=== PATIENT | female | born 1965 | race American Indian/Alaskan Native ===

== ENCOUNTER 2016-08-22 12:04 | Outpatient (CLI) | payer MEDICAID ==
--- NOTE | 2016-08-23 09:37 | PET Report ---
PET/CT:08/22/16 12:04:00 CLINICAL: Right breast cancer staging. Status post ultrasound needle biopsy right breast mass at 8 o'clock 3 cm from the nipple on 06/22/16 with pathologic diagnosis of invasive ductal carcinoma. A second mass at 9 o'clock 4 cm from nipple with identical pathology. RADIOPHARMACEUTICAL: 15.42mCi F18-FDG. COMPARISON: MRI Breast 07/30/16 TECHNIQUE- Following intravenous injection of F-18 FDG and an approximately 60 minute uptake period, CT and PET images from the mid skull to the upper thighs were acquired with the patient in the fasted state. No contrast was administered. The CT protocol used for this PET CT study is designed for attenuation correction and anatomic localization of PET abnormalities. This skein drier CT is not desired to produce and cannot replace, [id number] diagnostic CT scans with specific imaging protocols for different body parts and indications. Plasma glucose at the time of this test: 111g/dl. The standardized uptake values (SUV) are normalized to patient body weight and indicate the highest activity concentration (SUV max) in a given disease site. FINDINGS: Brain--Physiologic FDG uptake in the visualized regions of the brain. Neck--Physiologic FDG uptake . Chest--Physiologic FDG uptake in mediastinal blood pool and myocardium. Two irregular masses in the right breast with biopsy clips and minimal FDG uptake. Lungs--No abnormal uptake. No pulmonary nodule or mass. Pleura/pericardium--No abnormal uptake. Thoracic nodes--No abnormal uptake. Hepatobiliary--No abnormal uptake. Liver background SUV mean, as a reference for comparing FDG studies, is 3.7 . No liver mass. Spleen--No abnormal uptake. Pancreas--No abnormal uptake. Adrenal Glands--No abnormal uptake. Kidneys/Ureters/Bladder--No abnormal uptake. Abdominopelvic Nodes--No abnormal uptake. Bowel/Peritoneum/Mesentery--No abnormal uptake. Pelvic organs--No abnormal uptake. Bones/Soft Tissues--No suspicious uptake. No bone lesions. IMPRESSION-1. Relatively non-FDG avid right breast cancer. 2. No metastasis.
== END 2016-08-22 12:05 | disposition home or self-care (01) ==
LOC: PET 12:04
PROVIDERS: ATTEND Internal Medicine Hematology & Oncology
DX: C50.511 Malignant neoplasm of lower-outer quadrant of right female breast (principal)
CPT/HCPCS: 78815; 82962; A9552

== ENCOUNTER 2016-11-19 10:05 | Outpatient (CLI) | payer MEDICAID ==
--- NOTE | 2016-11-19 10:40 | Mammography Report ---
RIGHT DIGITAL DIAGNOSTIC MAMMOGRAM with CAD: 11/19/16 10:05:00 CLINICAL: Right breast cancer status post neoadjuvant chemotherapy. COMPARISON:07/22/16 BILL mammogram. FINDINGS: The breast is heterogeneously dense, which may obscure small masses.A relatively central retroareolar biopsy clip correlates with the known cancer. There is a residual focal asymmetry but no distinct mass at the clip. Two additional clips in the outer breast with no mammographic findings at those clips. IMPRESSION: A partial mammographic response to chemotherapy. BI-RADS CATEGORY: 6--Known Cancer ACR BI-RADS MAMMOGRAPHIC CODES: 0 = Needs additional imaging evaluation; 1 = Negative; 2 = Benign; 3 = Probably benign; 4 = Suspicious; 5 = Malignant; 6 = Known biopsy-proven malignancy COMMENT: 1. Dense breast tissue, i.e., adenosis, fibrocystic changes, etc., may obscure an underlying neoplasm. 2. Approximately 10% of cancers are not detected with mammography. 3. A negative mammography report should not delay biopsy if a clinically suspicious mass is present. COMMENT: Patient follow-up letters are generated by our [employer] application.
== END 2016-11-19 10:06 | disposition home or self-care (01) ==
LOC: SPVWC 10:05
PROVIDERS: ATTEND Surgery
DX: C50.411 Malignant neoplasm of upper-outer quadrant of right female breast (principal)
CPT/HCPCS: G0206-RT

== ENCOUNTER 2017-12-03 10:43 | Outpatient (CLI) | payer MEDICAID ==
--- NOTE | 2017-12-03 12:00 | Mammography Report ---
BONE DENSITY STUDY: Osteoporosis screening. DEFINITIONS: BMD = Bone Mineral Density T-score = BMD related to mean peak bone mass of young adult (mean expressed in Standard Deviation) Z-score = Age matched BMD expressed in SD World Health Organization (WHO) Diagnostic Criteria Normal T-score > -1 SD Osteopenia T-score between -1 and -2.4 SD Osteoporosis T-score -2.5 SD or below FINDINGS: The weighted average BMD of lumbar spine L1-L4 is 0.875 with a T-score of -1.6. The weighted average BMD of the left hip is 0.914 with a T-score of -0.2. The femoral neck BMD is 0.725 with a T. value score of -1.1. IMPRESSION: The patient's average T-score is diagnostic for osteopenia and average relative risk for fracture. NOTE: BMD is not the only risk factor for fracture; also consider factors such as the patient's age, risk of falling, previous osteoporotic fracture, family history of osteoporotic fractures, current smoker, and low body weight. Mcdaniel's triangle is a region of interest in femur, predominantly of trabecular bone. It is not a true anatomic site, and ISCD does not recommend its use clinically.
== END 2017-12-03 10:44 | disposition home or self-care (01) ==
LOC: MAMMO 10:43
PROVIDERS: ATTEND Internal Medicine Hematology & Oncology
DX: Z23 Encounter for immunization (principal); M85.88 Other specified disorders of bone density and structure, other site; C50.511 Malignant neoplasm of lower-outer quadrant of right female breast; T82.598A Other mechanical complication of other cardiac and vascular devices and implants, initial encounter; F17.210 Nicotine dependence, cigarettes, uncomplicated
CPT/HCPCS: 77080

== ENCOUNTER 2018-07-07 11:37 | Outpatient (CLI) | payer MEDICAID ==
--- NOTE | 2018-07-07 11:59 | XRay Report ---
ROUTINE CHEST, TWO VIEWS: HISTORY: Acute bronchitis. The trachea, heart, mediastinal contour, lung valle and bony thorax are unremarkable. IMPRESSION: Unremarkable chest x-ray.
== END 2018-07-07 11:38 | disposition home or self-care (01) ==
LOC: XRAY 11:37
PROVIDERS: ATTEND Internal Medicine
DX: J20.9 Acute bronchitis, unspecified (principal); Z90.710 Acquired absence of both cervix and uterus
CPT/HCPCS: 71046

== ENCOUNTER 2019-12-02 10:40 | Outpatient (CLI) | payer MEDICAID ==
--- NOTE | 2019-12-02 15:17 | Mammography Report ---
DEXA BONE DENSITY SCAN INDICATION: OSTEOPOROSIS. COMPARISON: None available. LUMBAR SPINE (L1-L4): Bone mineral density (BMD) is 0.886 g/cm2. T-score is -1.5 (standard deviations of Young Adult mean). Z-score is -1.3% (standard deviations of Age Matched mean). There has been a 1% increase in bone density since 2018 in this region. LEFT FEMORAL NECK: Bone mineral density (BMD) is 0.774 g/cm2. T-score is -0.7 (standard deviations of Young Adult mean). Z-score is -0.5 (standard deviations of Age Matched mean). There has been a nearly 5% increase in bone density since 2018 in this region. IMPRESSION: 1. WHO Classification: Osteopenia. Fracture Risk: Increased. Signer Name: Mikhail Osborne MD Signed: 12/02/2019 3:12 PM Workstation Name: [id number]
== END 2019-12-02 10:41 | disposition home or self-care (01) ==
LOC: MAMMO 10:40
PROVIDERS: ATTEND Internal Medicine Hematology & Oncology
DX: M81.0 Age-related osteoporosis without current pathological fracture (principal); C50.511 Malignant neoplasm of lower-outer quadrant of right female breast; Z23 Encounter for immunization; T82.598A Other mechanical complication of other cardiac and vascular devices and implants, initial encounter
CPT/HCPCS: 77080

== ENCOUNTER 2020-05-27 19:28 | Emergency (ER) | payer MEDICAID ==
[2020-05-27] MEDS ORDERED: SODIUM CHLORIDE 0.9% 500 ML 500 ML IV ONE (20:05)
[2020-05-27 20:30] LABS: Basophils % (Auto) 0.8 % (0.0-1.8); Eosinophils % (Auto) 0.2 % (0.0-4.3); Hemoglobin 12.4 gm/dl (10.1-14.3); Lymphocytes # (Auto) 1.7 K/mm3 (1.2-5.4); Lymphocytes % (Auto) 31.9 % (13.4-35.0); Mean Corpuscular HGB Conc 33 % (30-34); Mean Corpuscular Volume 81 fl (79-97); Monocytes # (Auto) 0.3 K/mm3 (0.0-0.8); Monocytes % (Auto) 6.3 % (0.0-7.3); Platelet Count 163 K/mm3 (140-440); Red Blood Count 4.72 M/mm3 (3.65-5.03); Red Cell Distribution Width 14.4 % (13.2-15.2)
--- NOTE | 2020-05-27 20:31 | XRay Report ---
CHEST 1 VIEW INDICATION: possible Sepsis COMPARISON: 07/07/2018 FINDINGS: Support devices: None Heart: Normal and unchanged Lungs/Pleura: Parenchymal density in the lung bases, most suggestive of atelectasis. No convincing ev idence of acute disease. IMPRESSION: 1. No acute disease and no interval change. Signer Name: Skinny Nair MD Signed: 05/27/2020 8:27 PM Workstation Name: [id number]
[2020-05-27 20:38] LABS: INR 1.1 (0.87-1.13)
[2020-05-27 20:45] LABS: Alanine Aminotransferase 28 units/L (7-56); Albumin 4.2 g/dL (3.9-5); BUN/Creatinine Ratio 10; Blood Urea Nitrogen 8 mg/dL (7-17); Calcium 8.8 mg/dL (8.4-10.2); Hemolysis Index 1
--- NOTE | 2020-05-27 20:58 | Emergency Department Report ---
ED General Adult HPI - General Chief complaint: Chest Pain Stated complaint: CHEST PAIN, FEVER Time Seen by Provider: 05/27/20 20:50 Source: patient Mode of arrival: Ambulatory Limitations: No Limitations - History of Present Illness Initial comments: Patient is a 55-year-old F Ethiopian female whose only past medical history is being a breast cancer survivor who is presenting with cough and fatigue for the past 3 to 4 days. Patient has had exposure to someone with COVID-19 as her daughter is currently in the ICU. Daughter is diabetic. Patient states that for the first 2 days she was extremely fatigued but that is improved. She now has mild body aches as well as dry cough. States the shortness of breath is minimal. Had 1-2 episodes of diarrhea which is resolved. She denies vomiting headache neck stiffness sore throat. - Related Data Home Medications Medication Instructions Recorded Confirmed Last Taken Ferrous Sulfate [Feosol] 325 mg PO QDAY 12/16/16 12/18/16 12/17/16 Previous Rx's Medication Instructions Recorded Last Taken Type Cyclobenzaprine [Flexeril] 10 mg PO TID PRN #10 tablet 12/18/16 Unknown Rx HYDROcodone/APAP 5-325 [Bieber 1 each PO Q6HR PRN #30 tablet 12/18/16 Unknown Rx 5/325] Albuterol Mdi (or & Nicu Only) 2 puff IH QID PRN #1 inhalation 05/27/20 Unknown Rx [ProAir HFA Inhaler] Benzonatate [Tessalon Perles] 100 mg PO Q8HR #10 capsule 05/27/20 Unknown Rx HYDROcodone/APAP 5-325 [Bieber 1 each PO Q6HR PRN #14 tablet 05/27/20 Unknown Rx 5/325] Ondansetron [Zofran Odt] 4 mg PO Q8HR #10 tab.rapdis 05/27/20 Unknown Rx predniSONE [Deltasone] 20 mg PO QDAY #5 tab 05/27/20 Unknown Rx Allergies Allergy/AdvReac Type Severity Reaction Status Date / Time No Known Allergies Allergy Verified 12/16/16 18:08 ED Review of Systems ROS: Stated complaint: CHEST PAIN, FEVER Other details as noted in HPI Comment: All other systems reviewed and negative ED Past Medical Hx - Past Medical History Previous Medical History?: Yes Hx Hypertension: No Hx Congestive Heart Failure: No Hx Diabetes: No Hx of Cancer: Yes (breast) Hx Headaches / Migraines: Yes (MIGRAINES) Hx Asthma: No Hx COPD: No Hx HIV: No - Surgical History Past Surgical History?: Yes Hx Breast Surgery: Yes (BREAST BX) Additional Surgical History: TUBAL LIGATION, bilateral mastectomy. - Social History Smoking Status: Never Smoker Substance Use Type: None - Medications Home Medications: Home Medications Medication Instructions Recorded Confirmed Last Taken Type Ferrous Sulfate [Feosol] 325 mg PO QDAY 12/16/16 12/18/16 12/17/16 History Cyclobenzaprine [Flexeril] 10 mg PO TID PRN #10 tablet 12/18/16 Unknown Rx HYDROcodone/APAP 5-325 [Bieber 1 each PO Q6HR PRN #30 tablet 12/18/16 Unknown Rx 5/325] Albuterol Mdi (or & Nicu Only) 2 puff IH QID PRN #1 inhalation 05/27/20 Unknown Rx [ProAir HFA Inhaler] Benzonatate [Tessalon Perles] 100 mg PO Q8HR #10 capsule 05/27/20 Unknown Rx HYDROcodone/APAP 5-325 [Bieber 1 each PO Q6HR PRN #14 tablet 05/27/20 Unknown Rx 5/325] Ondansetron [Zofran Odt] 4 mg PO Q8HR #10 tab.rapdis 05/27/20 Unknown Rx predniSONE [Deltasone] 20 mg PO QDAY #5 tab 05/27/20 Unknown Rx ED Physical Exam - General Limitations: No Limitations (Seconds) General appearance: alert, in no apparent distress - Head Head exam: Present: atraumatic, normocephalic - Eye Eye exam: Present: normal appearance, PERRL, EOMI - ENT ENT exam: Present: normal orophraynx (Here my), mucous membranes moist - Neck Neck exam: Present: normal inspection - Respiratory Respiratory exam: Present: normal lung sounds bilaterally. Absent: respiratory distress, wheezes, rales, rhonchi - Cardiovascular Cardiovascular Exam: Present: regular rate, normal rhythm, normal heart sounds. Absent: systolic murmur, diastolic murmur, rubs, gallop - GI/Abdominal GI/Abdominal exam: Present: soft, normal bowel sounds. Absent: distended, tenderness, guarding, rebound - Extremities Exam Extremities exam: Present: normal inspection - Back Exam Back exam: Present: normal inspection - Neurological Exam Neurological exam: Present: alert, oriented X3 - Psychiatric Psychiatric exam: Present: normal affect, normal mood - Skin Skin exam: Present: warm, dry, intact, normal color. Absent: rash ED Course Vital Signs 05/27/20 19:55 Temperature 101.7 F H Pulse Rate 111 H Respiratory 18 Rate Blood Pressure 142/73 O2 Sat by Pulse 95 Oximetry ED Medical Decision Making - Lab Data Result diagrams: 05/27/20 20:15 05/27/20 20:15 Lab Results 05/27/20 05/27/20 05/27/20 Range/Units 20:15 20:15 20:15 WBC 5.4 (4.5-11.0) K/mm3 RBC 4.72 (3.65-5.03) M/mm3 Hgb 12.4 (10.1-14.3) gm/dl Hct 38.0 (30.3-42.9) % MCV 81 (79-97) fl MCH 26 L (28-32) pg MCHC 33 (30-34) % RDW 14.4 (13.2-15.2) % Plt Count 163 (140-440) K/mm3 Lymph % (Auto) 31.9 (13.4-35.0) % [place] % (Auto) 6.3 (0.0-7.3) % Eos % (Auto) 0.2 (0.0-4.3) % Baso % (Auto) 0.8 (0.0-1.8) % Lymph # (Auto) 1.7 (1.2-5.4) K/mm3 [place] # (Auto) 0.3 (0.0-0.8) K/mm3 Eos # (Auto) 0.0 (0.0-0.4) K/mm3 Baso # (Auto) 0.0 (0.0-0.1) K/mm3 Seg Neutrophils % 60.8 (40.0-70.0) % Seg Neutrophils # 3.3 (1.8-7.7) K/mm3 PT 14.0 (12.2-14.9) Sec. INR 1.10 (0.87-1.13) VBG pH (7.320-7.420) Sodium 137 (137-145) mmol/L Potassium 3.7 (3.6-5.0) mmol/L Chloride 103.0 (98-107) mmol/L Carbon Dioxide 21 L (22-30) mmol/L Anion Gap 17 mmol/L BUN 8 (7-17) mg/dL Creatinine 0.8 (0.6-1.2) mg/dL Estimated GFR > 60 ml/min BUN/Creatinine Ratio 10 % Glucose 128 H (65-100) mg/dL Lactic Acid (0.7-2.0) mmol/L Calcium 8.8 (8.4-10.2) mg/dL Total Bilirubin 0.40 (0.1-1.2) mg/dL AST 28 (5-40) units/L ALT 28 (7-56) units/L Alkaline Phosphatase 97 (35-129) units/L Total Protein 7.7 (6.3-8.2) g/dL Albumin 4.2 (3.9-5) g/dL Albumin/Globulin Ratio 1.2 % 05/27/20 05/27/20 Range/Units 20:15 20:15 WBC (4.5-11.0) K/mm3 RBC (3.65-5.03) M/mm3 Hgb (10.1-14.3) gm/dl Hct (30.3-42.9) % MCV (79-97) fl MCH (28-32) pg MCHC (30-34) % RDW (13.2-15.2) % Plt Count (140-440) K/mm3 Lymph % (Auto) (13.4-35.0) % [place] % (Auto) (0.0-7.3) % Eos % (Auto) (0.0-4.3) % Baso % (Auto) (0.0-1.8) % Lymph # (Auto) (1.2-5.4) K/mm3 [place] # (Auto) (0.0-0.8) K/mm3 Eos # (Auto) (0.0-0.4) K/mm3 Baso # (Auto) (0.0-0.1) K/mm3 Seg Neutrophils % (40.0-70.0) % Seg Neutrophils # (1.8-7.7) K/mm3 PT (12.2-14.9) Sec. INR (0.87-1.13) VBG pH 7.427 H (7.320-7.420) Sodium (137-145) mmol/L Potassium (3.6-5.0) mmol/L Chloride (98-107) mmol/L Carbon Dioxide (22-30) mmol/L Anion Gap mmol/L BUN (7-17) mg/dL Creatinine (0.6-1.2) mg/dL Estimated GFR ml/min BUN/Creatinine Ratio % Glucose (65-100) mg/dL Lactic Acid 1.70 (0.7-2.0) mmol/L Calcium (8.4-10.2) mg/dL Total Bilirubin (0.1-1.2) mg/dL AST (5-40) units/L ALT (7-56) units/L Alkaline Phosphatase (35-129) units/L Total Protein (6.3-8.2) g/dL Albumin (3.9-5) g/dL Albumin/Globulin Ratio % - Radiology Data Ordering Physician: NISSA MAYS MD Date of Service: 05/27/20 Procedure(s): XR chest 1V ap Accession Number(s): [id number] cc: ED MD TABATHA Fluoro Time In Minutes: CHEST 1 VIEW INDICATION: possible Sepsis COMPARISON: 07/07/2018 FINDINGS: Support devices: None Heart: Normal and unchanged Lungs/Pleura: Parenchymal density in the lung bases, most suggestive of atelectasis. No convincing evidence of acute disease. IMPRESSION: 1. No acute disease and no interval change. Signer Name: Skinny Nair MD Signed: 05/27/2020 8:27 PM Workstation Name: [id number] - Medical Decision Making Patient with a normal O2 saturation. Chest x-ray is within normal limits. Lactic is normal white count normal. Does not appear as the patient is in extremis. Patient likely does have COVID-19 but is stable for outpatient management. Critical care attestation.: If time is entered above; I have spent that time in minutes in the direct care of this critically ill patient, excluding procedure time. ED Disposition Clinical Impression: Suspected COVID-19 virus infection Acute bronchitis Qualifiers: Bronchitis organism: unspecified organism Qualified Code(s): J20.9 - Acute bronchitis, unspecified Disposition: DC- TO HOME OR SELFCARE Is pt being admited?: No Does the pt Need Aspirin: No Condition: Stable Instructions: Acute Bronchitis (ED), Acute Bronchitis, Adult, [id number], COVID-19 Frequently Asked Questions Additional Instructions: Please obtain COVID-19 testing as an outpatient. Continue to isolate yourself from others. Please try to buy a home pulse oximeter and return to the emergency department if your oxygen level dips below 90% Referrals: PRIMARY CAREMD [Primary Care Provider] - 3-5 Days [facility] MD RULA [Referring] - 3-5 Days Time of Disposition: 21:03
[2020-05-27 21:26] VITALS: BP 110/50
== END 2020-05-27 21:15 | disposition home or self-care (01) ==
LOC: ED 19:28
DX: J20.9 Acute bronchitis, unspecified (principal); Z20.828 Contact with and (suspected) exposure to other viral communicable diseases; G43.909 Migraine, unspecified, not intractable, without status migrainosus; Z98.890 Other specified postprocedural states; Z79.899 Other long term (current) drug therapy
CPT/HCPCS: 36415; 71045; 80053; 82140; 82805; 85025; 85610; 87040; 93005